=== PATIENT | female | born 1995 | race African-American/Black ===

== ENCOUNTER 2017-12-29 13:37 | Inpatient (IN) | payer OTHER ==
[~2017-12-29] VITALS: Ht 157.5 cm; Wt 108.9 kg
--- NOTE | ~2017-12-29 | HC ---
[facility] [place] [address] CONSULTATION Name: SABINO MONTEJO Room #: 454-P ADM IN M.R.#: [id number] Admission: 12/29/17 Attend Phys: Rodrigo Singletary MD Discharge: Date of : 89 Report #: [id number] THIS REPORT FOR: //name// CC: Rodrigo Oakes DATE OF SERVICE: 12/30/2017 ATTENDING PHYSICIAN: Rodrigo Singletary MD HISTORY OF PRESENT ILLNESS: A 22-year-old -[place] woman, resident of a local psychiatric unit, is transferred to the Emergency Room at [facility] with question allergic reaction. The patient currently not participating in the history or physical exam, but it appears that she had developed some oral lesions thought to be herpetic in nature. She is started on Valtrex. There is a question history of allergic reaction to these. She is treated accordingly. DRUG ALLERGIES: CHLORPROMAZINE, COCONUT. PAST MEDICAL HISTORY: Psychiatric issues of undetermined type and recent dental extraction. The patient is unable to provide any information whatsoever. She is rather somnolent and not arousable. She needs psychiatric, ear, nose and throat and neurologic evaluation. The CT scan of the brain had failed to reveal evidence of herpetic encephalitis. MEDICATIONS: The patient is on treatment with clonazepam, prazosin, sertraline, bupropion, hydroxyzine p.r.n., trazodone, famotidine, haloperidol, divalproex, ____, Valtrex 1000 mg p.o. t.i.d., hydrocodone p.r.n., polyethylene glycol by mouth p.r.n., ondansetron, lidocaine topical. She did receive methylprednisolone and some morphine sulfate. SOCIAL HISTORY: Unable to obtain. FAMILY HISTORY: Unable to obtain. REVIEW OF SYSTEMS: Unable to obtain. PHYSICAL EXAMINATION: GENERAL: Obese woman, somnolent. She purposely closes her eyes tight when I asked her to open. When I asked her to open her mouth, she barely separates the lips. Actually she does not open the mouth. She does have some ulcerations on the lip and I suspect the oral cavity lesions may be related. We will obtain herpes culture of the oral [place] [address] CONSULTATION Name: SABINO MONTEJO Room #: 454-P [facility] IN M.R.#: [id number] Admission: 12/29/17 Attend Phys: Rodrigo Singletary MD Discharge: Date of : [birth year] Report #: [id number] NECK: Supple. LUNGS: Clear. HEART: S1 and S2. ABDOMEN: Obese and soft. PELVIC AND RECTAL: Deferred. EXTREMITIES: No clubbing or cyanosis. NEUROLOGIC: The patient is somnolent and not participating in the history and physical exam. LABORATORY DATA: Sodium 142, potassium 4, BUN 21, creatinine 1, glucose 110, albumin 2.8. WBC 7.2, hemoglobin 10.8 and platelets 262,000. The white blood cell count differential yesterday revealed 44% neutrophils, 8% bands, 34% lymphocytes and 13% monocytes. ASSESSMENT: 1. Oral lesions, question herpetic gingival stomatitis. 2. Recent dental extraction. 3. Psychiatric issues of undetermined ____. 4. Altered mental status. SUGGESTIONS: Recommend obtaining ESR, CRP. Continue Valtrex. Discontinue Flagyl. Start clindamycin for possible oral cavity related infection. Needs psychiatric, neurologic evaluation and ear, nose and throat evaluation. Obtain ESR, CRP and oral culture for HSV. Dr. Singletary, thank you for requesting my suggestions. <ELECTRONICALLY SIGNED> By: Michael Bright MD 12/31/17 1030 [id number] Michael Bright MD /nt
[2017-12-29 13:39] VITALS: BP 116/74
[2017-12-29 15:14] LABS: HEMATOCRIT 36.8 % (37.0-47.0); HEMOGLOBIN 11.8 gm/dL (12.0-15.0); MCH 29.7 pg (26.0-34.0); MCV 92.7 fL (80.0-100.0); PLATELET COUNT 278 thou/uL (150-400); RBC 3.97 mil/uL (4.20-5.00); RDW 16.3 % (10.5-14.5); WBC 6.7 thou/uL (4.0-11.0)
[2017-12-29 15:23] LABS: CALCIUM 9.5 mg/dL (8.5-10.1); POTASSIUM 3.8 mmol/L (3.5-5.1)
[2017-12-29 15:29] LABS: ALBUMIN 2.8 g/dL (3.4-5.0); TOTAL BILIRUBIN 0.3 mg/dL (<0.1-1.0); TOTAL PROTEIN 8.9 g/dL (6.4-8.2)
[2017-12-29 15:32] LABS: ABSOLUTE NEUTROPHILS 3.5 thou/uL (1.4-8.2); ANISOCYTOSIS 1+
[2017-12-29 17:03] VITALS: BP 126/82
[2017-12-29 19:37] VITALS: BP 122/78
[2017-12-29] MEDS ORDERED: SERTRALINE HCL50 MG PO (21:01)
[2017-12-29] MEDS ORDERED: WELLBUTRIN SR150 MG PO (21:01)
[2017-12-29] MEDS ORDERED: BENZTROPINE MES1 MG PO ×2 (21:02→21:10)
[2017-12-29] MEDS ORDERED: CLONAZEPAM 0.50.5 M1 PO (21:03)
[2017-12-29] MEDS ORDERED: DEPAKOTE 250MG250 M1 PO (21:04)
[2017-12-29] MEDS ORDERED: PRAZOSIN 1 MG CA1 MG PO (21:05)
[2017-12-29] MEDS ORDERED: HALOPERIDOL 5 MG5 MG PO ×2 (21:06→21:15)
[2017-12-29] MEDS ORDERED: RANITIDINE 150150 M1 PO (21:07)
[2017-12-29] MEDS ORDERED: DIVALPROEX SOD250 M3 PO (21:07)
[2017-12-29] MEDS ORDERED: TRAZODONE HCL50 MG PO (21:08)
[2017-12-29] MEDS ORDERED: MIRALAX17 GM PO (21:11)
[2017-12-29] MEDS ORDERED: IBUPROFEN 400400 M2 PO (21:11)
[2017-12-29] MEDS ORDERED: ALLERGY RELIEF1 EAC4 PO (21:12)
[2017-12-29] MEDS ORDERED: HALDOL DEC100 MG/1 M IM (21:17)
[2017-12-29] MEDS ORDERED: HALDOL5 MG/1 ML IM (21:17)
[2017-12-29] MEDS ORDERED: HYDROXYZINE HCL25 M1 PO (21:18)
[2017-12-29] MEDS ORDERED: LORAZEPAM 2MG TA2 M1 PO (21:19)
[2017-12-29] MEDS ORDERED: LORAZEPAM 22 MG/1 ML IM (21:21)
[2017-12-29] MEDS ORDERED: VALTREX1000 MG PO (21:23)
[2017-12-29] MEDS ORDERED: LIDOCAINE VISC100 ML TOP (21:23)
[2017-12-30 04:55] VITALS: BP 129/89
[2017-12-30 06:15] LABS: HEMATOCRIT 33.8 % (37.0-47.0); HEMOGLOBIN 10.8 gm/dL (12.0-15.0); MCH 29.3 pg (26.0-34.0); MCHC 32.1 g/dL (28.0-37.0); MCV 91.3 fL (80.0-100.0); RBC 3.7 mil/uL (4.20-5.00); WBC 7.2 thou/uL (4.0-11.0)
[2017-12-30 08:20] VITALS: BP 135/80
[2017-12-30 16:03] VITALS: BP 115/75
[2017-12-30 19:27] VITALS: BP 107/73
[2017-12-31 04:56] VITALS: BP 99/50
[2017-12-31 06:28] LABS: HEMATOCRIT 34.7 % (37.0-47.0); HEMOGLOBIN 11.4 gm/dL (12.0-15.0); MCH 29.6 pg (26.0-34.0); MCHC 32.7 g/dL (28.0-37.0); MCV 90.4 fL (80.0-100.0); PLATELET COUNT 292 thou/uL (150-400); RBC 3.84 mil/uL (4.20-5.00); RDW 15.7 % (10.5-14.5); WBC 8.6 thou/uL (4.0-11.0)
[2017-12-31 08:00] VITALS: BP 83/46
[2017-12-31 08:05] LABS: ABSOLUTE NEUTROPHILS 3.2 thou/uL (1.4-8.2); METAMYELOCYTES 1 %; NUCLEATED RBCS 1 /100WBC
[2017-12-31 08:06] LABS: ATYPICAL LYMPHS 6 %
[2017-12-31 08:08] LABS: ANISOCYTOSIS 1+
[2017-12-31 16:00] VITALS: BP 100/61
[2017-12-31 19:37] VITALS: BP 106/55
[2018-01-01 03:32] VITALS: BP 118/67
[2018-01-01 07:20] VITALS: BP 98/63
[2018-01-01 17:11] VITALS: BP 88/60
[2018-01-01 20:12] VITALS: BP 121/54
[2018-01-02 03:29] VITALS: BP 79/44
[2018-01-02 08:25] VITALS: BP 117/64
[2018-01-02] MEDS ORDERED: VALTREX 500 MG500 MG PO (14:26)
[2018-01-02 14:48] VITALS: BP 117/64
== END 2018-01-02 17:16 | disposition short-term general hospital (02) | DRG 158 ==
LOC: ER 13:37 → EROBS 16:42 → 4W 19:11
PROVIDERS: Emergency Medicine; Hospitalist
PROC: 009U3ZZ Drainage of Spinal Canal, Percutaneous Approach (ICD-10-PCS; principal; 2017-12-31)
PROC: B01B1ZZ Fluoroscopy of Spinal Cord using Low Osmolar Contrast (ICD-10-PCS; 2017-12-31)
PROC: 05HB33Z Insertion of Infusion Device into Right Basilic Vein, Percutaneous Approach (ICD-10-PCS; 2018-01-01)
DX: K12.1 Other forms of stomatitis (principal); Z68.41 Body mass index [BMI] 40.0-44.9, adult; K13.70 Unspecified lesions of oral mucosa; E66.9 Obesity, unspecified; R25.2 Cramp and spasm; B00.9 Herpesviral infection, unspecified; F31.9 Bipolar disorder, unspecified; K12.39 Other oral mucositis (ulcerative); Z88.8 Allergy status to other drugs, medicaments and biological substances; Z79.899 Other long term (current) drug therapy
CPT/HCPCS: 10045; 27001

== ENCOUNTER → 2018-12-30 | Outpatient (CLI) | payer OTHER ==
[~2018-12-30] MED LIST: ALLERGY RELIEF1 EAC4 PO; BENZTROPINE MES1 MG PO; CLONAZEPAM 0.50.5 M1 PO; DEPAKOTE 250MG250 M1 PO; DIVALPROEX SOD250 M3 PO; HALDOL DEC100 MG/1 M IM; HALDOL5 MG/1 ML IM; HALOPERIDOL 5 MG5 MG PO; HYDROXYZINE HCL25 M1 PO; IBUPROFEN 400400 M2 PO; LIDOCAINE VISC100 ML TOP; LORAZEPAM 22 MG/1 ML IM; LORAZEPAM 2MG TA2 M1 PO; MIRALAX17 GM PO; PRAZOSIN 1 MG CA1 MG PO; RANITIDINE 150150 M1 PO; SERTRALINE HCL50 MG PO; TRAZODONE HCL50 MG PO; VALTREX 500 MG500 MG PO; VALTREX1000 MG PO; WELLBUTRIN SR150 MG PO
--- NOTE | 2019-01-03 20:50 | SLE ---
[facility] [place] [address] [place] [address] POLYSOMNOGRAPHY STUDY Name: SABINO MONTEJO Room #: [facility].#: [id number] Admission: 12/30/18 ������������������ Attend Phys: Pedro Galvez MD Discharge: ������������������ Date of : 89 Report #: [id number] THIS REPORT FOR: //name// CC: Pedro Oakes DATE OF SERVICE: 12/31/2018 ATTENDING PHYSICIAN: Dr. Faizan Oakes. The patient is a 23 years old who weighs 265 pounds with a BMI of 46.9. The patient's [place] score was 9. The patient underwent sleep study at [facility]. During the night study, the patient spent 365 minutes in bed and slept for 274 minutes with a sleep efficiency of 75%. Sleep latency was 70 minutes with a REM latency of 240 minutes. Overall, sleep architecture showed normal stage 1 and stage 2 sleep, increased N3 sleep, which is 49% of the total sleep time and reduced REM sleep, which was only 0.5% of the total sleep time. During the night study, the patient had 31 obstructive apneas, no mixed apneas and 2 central apneas. The patient had 52 hypopneas. The patient's apnea hypopnea index was 18.6 per hour with a REM index of 160 per hour. This was related to the very limited REM sleep. The patient's supine index was 23 per hour. EKG monitoring revealed an average heart rate of 102 beats per minute. Occasional PVCs observed. No sustained arrhythmia seen. No clinically significant PLMs observed. Nocturnal oximetry study revealed an average oxygen saturation of 93%, the lowest of 45%. 5.7 minutes were spent on oxygen saturation of less than 89%. The patient met the criteria for CPAP initiation, but there was not enough time to initiate CPAP. IMPRESSION: 1. Moderate sleep apnea-hypopnea syndrome with worsening during REM sleep. 2. Nocturnal hypoxia secondary to obstructive sleep apnea. 3. No clinically significant periodic limb movements. RECOMMENDATIONS: 1. The patient would benefit from return to the sleep lab for CPAP titration study. 2. Alternate treatment option would include use of an oral appliance as recommended by the dentist. [facility] [address] [place] [address] POLYSOMNOGRAPHY STUDY Name: SABINO MONTEJO Room #: [facility].#: [id number] Admission: 12/30/18 ������������������ Attend Phys: Pedro Galvez MD Discharge: ������������������ Date of : 89 Report #: [id number] 3. Once the patient is optimally treated, follow up in 4-6 weeks to assess compliance with treatment and to document clinical improvement. 4. Weight loss is strongly advised. 5. Avoid [employer] depressants. 6. Cautioned regarding driving until symptoms of sleep apnea resolves with the above recommendations. ��������������������������������������������� <ELECTRONICALLY SIGNED> ���������������������������������������� By: Pedro Galvez MD ��������������������������������������������� 01/03/192049 26 1854 Pedro Galvez MD /tommy
== END ==
LOC: SLEEPLAB 11:48
DX: G47.33 Obstructive sleep apnea (adult) (pediatric) (principal); G47.34 Idiopathic sleep related nonobstructive alveolar hypoventilation

== ENCOUNTER 2020-07-14 19:30 | Emergency (ER) | payer OTHER ==
[~2020-07-14] VITALS: Ht 172.7 cm; Wt 113.0 kg
[2020-07-14] MEDS ORDERED: CLARITIN10 M3 PO (20:11)
[2020-07-14] MEDS ORDERED: HALOPERIDOL 5 MG5 MG PO (20:14)
[2020-07-14] MEDS ORDERED: OMEPRAZOLE 20 M20 M1 PO (20:15)
[2020-07-14] MEDS ORDERED: MELATONIN3 M1 PO (20:16)
[2020-07-14] MEDS ORDERED: NON-ASPIRIN325 MG PO (20:18)
[2020-07-14] MEDS ORDERED: LORATIDINE 10 M10 M1 PO (20:19)
[2020-07-14] MEDS ORDERED: ONDANSETRON HCL4 M2 PO (20:19)
[2020-07-14 20:43] LABS: HEMATOCRIT 34.9 % (37.0-47.0); HEMOGLOBIN 11.2 gm/dL (12.0-15.0); MCH 28.6 pg (26.0-34.0); MCHC 32.2 g/dL (28.0-37.0); MCV 88.7 fL (80.0-100.0); RBC 3.93 mil/uL (4.20-5.00); RDW 17.4 % (10.5-14.5); WBC 6.7 thou/uL (4.0-11.0)
[2020-07-14 20:55] LABS: ANION GAP 7 mmol/L (7-16); BUN 12 mg/dL (7-18); CALCIUM 9.1 mg/dL (8.5-10.1); CHLORIDE 104 mmol/L (98-107); CO2 31 mmol/L (21-32); GLUCOSE 121 mg/dL (74-106); POTASSIUM 3.8 mmol/L (3.5-5.1); SALICYLATE < 2.8 mg/dL (2.8-20.0); SODIUM 142 mmol/L (136-145)
[2020-07-14 21:12] LABS: URINE BILIRUBIN NEGATIVE (Negative); URINE BLOOD NEGATIVE (Negative); URINE CLARITY CLEAR; URINE COLOR YELLOW; URINE GLUCOSE-RANDOM* NEGATIVE (Negative); URINE KETONES TRACE (Negative); URINE LEUKOCYTES-REFLEX TRACE (Negative); URINE NITRITE-REFLEX NEGATIVE (Negative); URINE PROTEIN (DIPSTICK) NEGATIVE (Negative); URINE SPECIFIC GRAVITY 1.025 (1.005-1.035)
[2020-07-14 21:21] LABS: AMP/METHAMP Negative (Negative); BARBITURATES Negative (Negative); BENZODIAZEPINES POSITIVE (Negative); COCAINE Negative (Negative); METHADONE Negative (Negative); OPIATES Negative (Negative); PCP Negative (Negative)
[2020-07-17 01:07] VITALS: BP 138/77
== END 2020-07-17 02:00 | disposition short-term general hospital (02) ==
LOC: ER 19:30
PROVIDERS: Emergency Medicine
DX: R45.851 Suicidal ideations (principal); F31.9 Bipolar disorder, unspecified; R30.0 Dysuria; R10.9 Unspecified abdominal pain; K92.1 Melena; Z20.828 Contact with and (suspected) exposure to other viral communicable diseases; Z79.899 Other long term (current) drug therapy; Z88.8 Allergy status to other drugs, medicaments and biological substances; Z91.018 Allergy to other foods